=== PATIENT | male | born 1960 | race Caucasian/White ===

== ENCOUNTER → 2017-06-09 | Outpatient (CLI) | payer OTHER ==
[~2017-06-09] MED LIST: ACETAMINOPHEN325 M1 PO; ASPIRIN325 PO; IBUPROFEN 200200 M1 PO; MULTIPLE VITAM1 EAC2 PO; NORCO 5-325 TA1 EACH PO; PERCOCET PO
== END ==
LOC: M.RAD 11:46
DX: J15.8 Pneumonia due to other specified bacteria (principal)

== ENCOUNTER → 2017-07-04 | Outpatient (CLI) | payer OTHER | LOC: M.RAD 15:16 | DX: M23.92 Unspecified internal derangement of left knee (principal) ==

== ENCOUNTER → 2017-07-08 | Outpatient (CLI) | payer OTHER | LOC: M.MRI 12:11 | DX: S83.242A Other tear of medial meniscus, current injury, left knee, initial encounter (principal); S83.282A Other tear of lateral meniscus, current injury, left knee, initial encounter; X58.XXXA Exposure to other specified factors, initial encounter; Y93.89 Activity, other specified; Y92.89 Other specified places as the place of occurrence of the external cause; Y99.8 Other external cause status ==

== ENCOUNTER → 2017-07-22 | Day surgery (SDC) | payer OTHER ==
--- NOTE | 2017-08-19 15:01 | OP ---
[address] [address] OPERATIVE REPORT Name: IVAN SOTOMAYOR Room: [facility].#: [id number] Admission: 07/22/17 Attend Phys: Malcolm Flores Discharge: Date of : 56 Report #: [id number] THIS REPORT FOR: //name// CC: Rigo Salas DICTATED BY: Socrates Dowling DO DATE OF SERVICE: 07/22/2017 PREOPERATIVE DIAGNOSIS: Left knee medial meniscus tear. POSTOPERATIVE DIAGNOSES: 1. Left knee complex medial meniscus tear. 2. 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 PROCEDURES: 1. Left knee arthroscopy with partial medial meniscectomy. 2. Left knee arthroscopy with limited synovectomy. SURGEON: Trever Salas DO ASSISTANTS: 1. Socrates Dowling DO 2. Babar Garcia DO SPECIMEN: None. ESTIMATED BLOOD LOSS: Minimal. COMPLICATIONS: None. TOURNIQUET TIME: 37 minutes at 300 mmHg. CONDITION: Stable to PACU. DISPOSITION: To be discharged to home from PACU following the PACU protocol. GROSS PATHOLOGY: Grade 2 chondromalacia of the central apex as well as lateral facet of the patella as well as grade 2 chondromalacia of medial femoral condyle and medial tibial plateau. Then, complex radial tear with inferior flap component, tear of the medial meniscus. Lateral meniscus and lateral compartment relatively pathology free. INDICATIONS FOR PROCEDURE: The patient is a pleasant 57-year-old male who unfortunately has been seen in our office regarding left knee pain. He has [facility] [address] [place] [address] OPERATIVE REPORT Name: IVAN SOTOMAYOR Room: [facility].#: [id number] Admission: 07/22/17 Attend Phys: Malcolm Flores Discharge: Date of : 56 Report #: [id number] unfortunately had left knee pain for a number of months that has been treated with conservative measures of rest, ice, compression, nonsteroidal anti-inflammatories as well as pain analgesics. However, the patient continued to have ongoing left knee pain, popping and catching. He was subsequently diagnosed with a left knee medial meniscus tear on physical exam as well as MRI. Therefore, it was discussed with the patient to undergo operative intervention consisting of left knee arthroscopy with potential partial medial meniscectomy. Therefore, all the risks, benefits, treatment options, alternatives, complications and indications were discussed with the patient. Risks including but not limited to, neurovascular injury, continued pain, continued bleeding, damage to surrounding cartilage, ligaments and neurovascular structures, wound complications, infection, DVT, PE, as well as inherent complication of anesthesia. The patient was in full understanding and assumed the risks and wished to proceed with surgery. DESCRIPTION OF PROCEDURE: The patient was seen in the preoperative bay where the consent was obtained and signed, and the operative site was marked and initialed. The patient was then transported to the operative suite and placed supine on the operating room table. He was given the benefit of general anesthetic and then a well-padded tourniquet was applied to the left thigh. The left knee was then sterilely prepped with chlorhexidine scrub, alcohol rinse x 2 and then ChloraPrep x 2. The left knee was then sterilely draped in a normal sterile fashion. Timeout was then had indicating appropriate patient, operative site, procedure to be performed, preoperative antibiotics as well as the operating room surgeon. All in attendance were in agreement. Marking pen was then used to identify the inferior pole of the patella as well as the vertical lateral incision just superior and lateral to the patella as well as the horizontal medial incision just inferior and medial to the apex of the patella. Esmarch was then used to exsanguinate the limb and tourniquet was then inflated to 300 mmHg. An 11 blade scalpel was then used to incise the anterolateral portal through skin and subcutaneous tissue as well as capsule. Camera was then inserted and then diagnostic arthroscopy was performed with the above mentioned pathology. Attention was then directed to the medial compartment where limited synovectomy was required to be performed of the patellofemoral compartment as well as Hoffa's fat pad for adequate visualization. A medial portal was established utilizing an 18-gauge spinal needle that was deemed to be parallel to the patella and tension free and then a spinal needle was then removed and an 11 blade scalpel was then used to incise the skin, subcutaneous tissue and then visualized to incise the medial capsule in a horizontal fashion. At that time, medial meniscectomy was performed using arthroscopic straight and curved biters as well as shaver of the posterior horn of the medial meniscus to the posterior body of the medial meniscus where the radial tear originates in a well-tapered fashion. Then, all free debris was removed using the arthroscopic shaver. The medial meniscectomy was tapered to where the radial tear was and then, the camera was then inserted into the medial portal where the medial body of the meniscus was visualized and then the remaining [place] [address] OPERATIVE REPORT Name: IVAN SOTOMAYOR Room: [facility]#: [id number] Admission: 07/22/17 Attend Phys: Malcolm Flores Discharge: Date of : 56 Report #: [id number] to the posterior body part of the meniscus was excised utilizing straight and curved arthroscopic biters and alternating arthroscopic shaver to remove all debris and this was deemed to be brought back to a stable margin with no free flaps associated. Meniscus was then continued to be rounded and debrided utilizing the arthroscopic shaver. Shaver was then removed and then a probe was inserted and all aspects of the medial meniscus was probed and deemed to be in appropriate stable condition. Final pictures were then taken. All instruments and camera was then removed and the knee was exsanguinated and then, 2 portals were closed utilizing 3-0 nylon in a simple interrupted fashion and then wounds were dressed utilizing Xeroform, 4 x 4s, soft roll and Ross wrap. Tourniquet was then let down at 37 minutes. The patient was then transported to PACU in a stable condition. <ELECTRONICALLY SIGNED> By: Trever Salas DO 08/19/17 1501 1634 1814Micjunie Salas DO /jeremy
== END | disposition home or self-care (01) ==
LOC: M.SUR 11:27
DX: M23.222 Derangement of posterior horn of medial meniscus due to old tear or injury, left knee (principal); M94.262 Chondromalacia, left knee; Z79.82 Long term (current) use of aspirin; Z79.891 Long term (current) use of opiate analgesic

== ENCOUNTER → 2018-07-21 | Outpatient (CLI) | payer BC | LOC: M.MRI 07:10 | DX: M51.37 Other intervertebral disc degeneration, lumbosacral region (principal); M48.07 Spinal stenosis, lumbosacral region; I10 Essential (primary) hypertension; E78.00 Pure hypercholesterolemia, unspecified; F32.89 Other specified depressive episodes; Z79.899 Other long term (current) drug therapy; Z68.30 Body mass index [BMI] 30.0-30.9, adult; Z87.891 Personal history of nicotine dependence; Z80.6 Family history of leukemia; Z82.49 Family history of ischemic heart disease and other diseases of the circulatory system; Z80.8 Family history of malignant neoplasm of other organs or systems; Z83.438 Family history of other disorder of lipoprotein metabolism and other lipidemia ==

== ENCOUNTER 2018-07-31 09:57 | Inpatient (IN) | payer BC ==
[~2018-07-31] VITALS: Ht 172.7 cm; Wt 91.2 kg
--- NOTE | ~2018-07-31 | PROC ---
[facility] [address] [place] [address] PROCEDURE REPORT Name: IVAN SOTOMAYOR Room: [address] IN M.R.#: [id number] Admission: 07/31/18 Attend Phys: Malcolm Atkins Discharge: Date of : 56 Report #: [id number] THIS REPORT FOR: //name// For GI report, please see the Provation report in Perceptive 7 content. By: 0834Medical Records Staff JABARI /KIKE
[2018-07-31 10:01] VITALS: BP 143/81
[2018-07-31] MEDS ORDERED: LISINOPRIL10 MG PO (10:06)
[2018-07-31 10:15] LABS: ABSOLUTE LYMPHOCYTES 3.1 thou/uL (0.8-5.3); ABSOLUTE MONOCYTES 0.9 thou/uL (0.0-1.2); ABSOLUTE NEUTROPHILS 10.2 thou/uL (1.6-8.1); BASOPHILS 0.1 %; EOSINOPHILS 0.1 %; HEMATOCRIT 24.8 % (42.0-52.0); HEMOGLOBIN 8.6 gm/dL (14.0-18.0); LYMPHOCYTES 21.9 %; MCH 32.2 pg (26.0-34.0); MCHC 34.9 g/dL (28.0-37.0); MCV 92.3 fL (80.0-100.0); MONOCYTES 6.3 %; MPV 7.6 fl. (7.2-11.1); NUCLEATED RBCS 0 /100WBC; PLATELET COUNT* 376 thou/uL (150-400); POLYS 71.6 %; RBC 2.69 mil/uL (4.50-6.00); RDW-CV 12.8 % (10.5-14.5); WBC 14.3 thou/uL (4.0-11.0)
[2018-07-31 10:25] LABS: APTT 22.3 Seconds (25.0-31.3); INR 0.9; PROTIME 9.6 Seconds (9.20-11.50)
[2018-07-31 10:36] LABS: ALBUMIN 3.6 g/dL (3.4-5.0); ALKALINE PHOSPHATASE 47 U/L (46-116); ANION GAP 7 mmol/L (7-16); BUN 24 mg/dL (7-18); CALCIUM 8.9 mg/dL (8.5-10.1); CHLORIDE 99 mmol/L (98-107); CO2 25 mmol/L (21-32); GLUCOSE 110 mg/dL (70-99); NT-PRO BRAIN NAT PEPTIDE 358 pg/mL (<300); POTASSIUM 4.3 mmol/L (3.5-5.1); SGOT 29 U/L (15-37); SGPT 52 U/L (30-65); SODIUM 131 mmol/L (136-145); TOTAL BILIRUBIN 0.2 mg/dL (<0.1-1.0); TOTAL PROTEIN 6.5 g/dL (6.4-8.2); TROPONIN-I LEVEL <0.06 ng/mL (<0.06)
[2018-07-31 14:58] VITALS: BP 131/74
--- NOTE | 2018-07-31 16:02 | EKG ---
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
[2018-07-31 17:23] VITALS: BP 117/71
[2018-07-31 18:23] VITALS: BP 117/71
[2018-07-31 18:45] VITALS: BP 124/70
[2018-07-31] MEDS ORDERED: CHILDREN'S ASPI81 MG PO (19:01)
[2018-07-31] MEDS ORDERED: VITAMIN D1000 UNI2 PO (19:04)
[2018-07-31] MEDS ORDERED: VITAMIN C500 M2 PO (19:04)
[2018-07-31] MEDS ORDERED: NICOTINE LOZENGE2 MG PO (19:25)
[2018-07-31 19:50] VITALS: BP 110/63
[2018-08-01] VITALS: BP 101/56
[2018-08-01 04:00] VITALS: BP 107/68
[2018-08-01 05:49] LABS: HEMATOCRIT 23.7 % (42.0-52.0); HEMOGLOBIN 8.2 gm/dL (14.0-18.0); MCH 32.3 pg (26.0-34.0); MCHC 34.7 g/dL (28.0-37.0); MCV 93.2 fL (80.0-100.0); MPV 8.2 fl. (7.2-11.1); NUCLEATED RBCS 0 /100WBC; RBC 2.54 mil/uL (4.50-6.00); RDW-CV 12.9 % (10.5-14.5); WBC 7.9 thou/uL (4.0-11.0)
[2018-08-01 06:02] LABS: PLATELET COUNT* 299 thou/uL (150-400)
[2018-08-01 06:04] LABS: ALBUMIN 3.1 g/dL (3.4-5.0); CALCIUM 8.6 mg/dL (8.5-10.1); CREATININE 1.1 mg/dL (0.6-1.3); TOTAL BILIRUBIN 0.2 mg/dL (<0.1-1.0); TOTAL PROTEIN 5.8 g/dL (6.4-8.2)
[2018-08-01 06:26] LABS: POTASSIUM 5.3 mmol/L (3.5-5.1)
[2018-08-01 06:48] LABS: ABSOLUTE LYMPHOCYTES 2.5 thou/uL (0.8-5.3); ABSOLUTE MONOCYTES 0.1 thou/uL (0.0-1.2); ABSOLUTE NEUTROPHILS 5.3 thou/uL (1.6-8.1); ATYPICAL LYMPHS 8 %; METAMYELOCYTES 2 %; MYELOCYTES 1 %; PLATELET ESTIMATE ADEQUATE
[2018-08-01 08:00] VITALS: BP 117/68
[2018-08-01 08:22] LABS: ESR (SEDRATE) 15 mm/hr (0-20)
[2018-08-01 10:15] VITALS: BP 117/68
[2018-08-01 15:15] VITALS: BP 128/70
[2018-08-01 19:08] LABS: HEMATOCRIT 23.7 % (42.0-52.0); HEMOGLOBIN 8.4 gm/dL (14.0-18.0)
[2018-08-01 20:13] VITALS: BP 93/54
[2018-08-02] VITALS: BP 98/58
[2018-08-02 04:00] VITALS: BP 106/62
[2018-08-02 05:08] LABS: ABSOLUTE EOSINOPHILS 0.1 thou/uL (0.0-0.7); ABSOLUTE LYMPHOCYTES 2.8 thou/uL (0.8-5.3); ABSOLUTE MONOCYTES 0.6 thou/uL (0.0-1.2); ABSOLUTE NEUTROPHILS 3.6 thou/uL (1.6-8.1); BASOPHILS 0.5 %; EOSINOPHILS 1.3 %; HEMATOCRIT 24.6 % (42.0-52.0); HEMOGLOBIN 8.5 gm/dL (14.0-18.0); LYMPHOCYTES 39.5 %; MCH 32.5 pg (26.0-34.0); MCHC 34.7 g/dL (28.0-37.0); MCV 93.7 fL (80.0-100.0); MPV 8.2 fl. (7.2-11.1); NUCLEATED RBCS 0 /100WBC; PLATELET COUNT* 346 thou/uL (150-400); POLYS 49.7 %; RBC 2.63 mil/uL (4.50-6.00); RDW-CV 13.2 % (10.5-14.5); WBC 7.2 thou/uL (4.0-11.0)
[2018-08-02 05:12] LABS: CALCIUM 8.6 mg/dL (8.5-10.1); CREATININE 0.9 mg/dL (0.6-1.3); POTASSIUM 4.5 mmol/L (3.5-5.1)
[2018-08-02 08:00] VITALS: BP 116/75
[2018-08-02 12:18] VITALS: BP 110/67
[2018-08-02 16:53] VITALS: BP 111/64
[2018-08-02 20:57] VITALS: BP 103/67
[2018-08-03] VITALS: BP 105/63
[2018-08-03 04:00] VITALS: BP 99/63
[2018-08-03 04:42] LABS: HEMATOCRIT 24.3 % (42.0-52.0); HEMOGLOBIN 8.4 gm/dL (14.0-18.0); MCH 32.2 pg (26.0-34.0); MCHC 34.6 g/dL (28.0-37.0); MCV 93.3 fL (80.0-100.0); RBC 2.61 mil/uL (4.50-6.00); RDW-CV 13.4 % (10.5-14.5); WBC 7.6 thou/uL (4.0-11.0)
[2018-08-03 08:15] VITALS: BP 116/76
[2018-08-03] MEDS ORDERED: PROTONIX40 M1 PO (12:47)
[2018-08-03 13:04] VITALS: BP 116/76
--- NOTE | 2018-08-05 09:57 | CON ---
[address] [address] CONSULTATION Name: IVAN SOTOMAYOR Room: [address] IN M.R.#: [id number] Admission: 07/31/18 Attend Phys: Malcolm Atkins Discharge: 08/03/18 Date of : 56 Report #: [id number] THIS REPORT FOR: //name// CC: Rigo Gallego DO DATE OF SERVICE: 08/01/2018 REFERRING PHYSICIAN: Matthew Gallego DO REASON FOR CONSULTATION: 1. Acute onset of melena over the last couple of weeks with associated anemia - evaluate for upper GI source for the same. 2. History of chronic back pain for which the patient takes ibuprofen on a daily basis. RECOMMENDATIONS: 1. At the present time, the patient appears to be hemodynamically stable to undergo endoscopic evaluation. We will proceed with upper endoscopy today and make further recommendations thereafter. 2. I have discussed the plans with patient as well as and they are agreeable to the same. HISTORY: The patient is a pleasant 58-year-old white male with a 2-day history who presented to the hospital with complaints of severe shortness of breath and by his dizziness, he was found to have hemoglobin 8 gram range. He has had some problem with dark tarry stools over the last couple of weeks without any complaints of any dyspepsia. He denies heartburn, indigestion, any problem with dysphagia or odynophagia. Denies nausea, vomiting or hematemesis. He has undergone endoscopic studies of his lower GI tract in the past, last of which was performed in 2016, at which time, he had some hyperplastic polyps being notable. He denies any lower abdominal cramping or any other issues. His weight has been stable. He does take ibuprofen on a regular basis for chronic back pain, but also in addition takes hydrocodone with acetaminophen. He has never had any problems related to his upper GI tract in the past, never had any previous studies of the same. He is admitted to hospital for further evaluation and treatment. ALLERGIES: None. MEDICATIONS: Lisinopril, hydrocodone with APAP 5/325 up to 4 times a day, ibuprofen 200 mg up to every 6 hours, multivitamin. He takes [place] [address] CONSULTATION Name: SOTOMAYORIVAN Dominic Room: [address]#: [id number] Admission: 07/31/18 Attend Phys: Malcolm Atkins Discharge: 08/03/18 Date of : 56 Report #: [id number] PAST MEDICAL HISTORY: Remarkable for hypertension, chronic low back pain. He has had history of polyps, but they were hypoplastic in nature. SOCIAL HISTORY: The patient is for second time. He does not smoke, drinks alcohol on a regular basis anywhere from 4 to 6 beers a day. FAMILY HISTORY: Negative. PHYSICAL EXAMINATION: GENERAL: A pleasant 58-year-old gentleman who is awake, alert. VITAL SIGNS: His vital signs are stable. CARDIOPULMONARY: Revealed a regular rate and rhythm. LUNGS: Clear. ABDOMEN: Soft and nontender. No rebound or guarding noted. LABORATORY TEST: From admission revealed a white count of 14.3, hemoglobin 8.6, platelet count 376,000, MCV is 92.3 and RDW is 12.8. His differential is normal. His INR is 0.9. His complete metabolic panel revealed a sodium 131, potassium 4.3, chloride 99, bicarbonate 25. His BUN is 24 and creatinine 1.0. Total bilirubin 0.2, alkaline phosphatase 47, AST 29, ALT 52. His troponins have all been negative. His ferritin is 247. Folate is 22.2 and B12 level is 729. DISCUSSION: At the present time, the patient appears to be hemodynamically stable to undergo endoscopic evaluation. We will proceed with upper endoscopy today and make further recommendations thereafter. <ELECTRONICALLY SIGNED> By: Jaron Mcintyre DO 08/05/18 0957 1714 0311Jaron Mcintyre DO /nt
--- NOTE | 2018-08-07 09:06 | PATH ---
[facility] [address] [place] [address] PATHOLOGY RPT PROCEDURE Name: IVAN SOTOMAYOR Room: [address] IN M.R.#: [id number] Admission: 07/31/18 Date of : 56 Discharge: 08/03/18 Report #: [id number] Path Case #: [id number] [facility] Accession Number: [id number] . 01 Material submitted: . ANTRAL BIOPSY FOR H. PYLORI . 01 Clinical history: . Antral biopsy for H. pylori . 02 Diagnosis: Antral biopsy for H. pylori: - Mild nonspecific chronic antral gastritis, negative for Helicobacter pylori organisms and dysplasia. (CHUYITA:jeffery; 08/03/2018) . Special stain: H. pylori immuno. QMS/08/03/2018 . 02 Electronically signed: . Gold Moser MD, Pathologist NPI- [id number] . 01 Gross description: . Received in formalin labeled "Ivan Sotomayor, antral biopsy for H. pylori," are two segments of pale laurent soft tissue measuring 0.3 x 0.2 x 0.2 cm each in greatest dimensions. The specimen is submitted entirely in cassette A1. (DAC; 08/02/2018) XDC/XDC . 02 Pathologist provided ICD-10: K29.50 . 02 CPT . 543594, R75845 Specimen Comment: A courtesy copy of this report has been sent to Specimen Comment: [phone], , . Specimen Comment: Report sent to ,DR ALEXANDER / DR GARAY Specimen Comment: A duplicate report has been generated due to demographic updates. Performed at: [address], [place] [id number] MD Lalito Vizcarra MD Phone: [phone] Performed at: [address] , [place], [place] [id number] [place] [address] PATHOLOGY RPT PROCEDURE Name: IVAN SOTOMAYOR Room: [address] IN M.R.#: [id number] Admission: 07/31/18 Date of : 56 Discharge: 08/03/18 Report #: [id number] Path Case #: [id number] MD Gold Moser MD Phone: [phone]
== END 2018-08-03 13:53 | disposition home or self-care (01) | DRG 378 ==
LOC: M.ERS 09:57 → M.TBA-ER 10:58 → M.2W 10:58
PROVIDERS: Emergency Medicine Emergency Medical Services; Internal Medicine Gastroenterology; Nurse Practitioner Adult Health; ADMIT Internal Medicine
DX: K25.4 Chronic or unspecified gastric ulcer with hemorrhage (principal); D62 Acute posthemorrhagic anemia; G89.29 Other chronic pain; M54.9 Dorsalgia, unspecified; I10 Essential (primary) hypertension; K44.9 Diaphragmatic hernia without obstruction or gangrene; Z79.899 Other long term (current) drug therapy

== ENCOUNTER → 2018-08-25 | Outpatient (CLI) | payer BC ==
[~2018-08-25] MED LIST changes: +CHILDREN'S ASPI81 MG PO; +LISINOPRIL10 MG PO; +NICOTINE LOZENGE2 MG PO; +PROTONIX40 M1 PO; +VITAMIN C500 M2 PO; +VITAMIN D1000 UNI2 PO
== END ==
LOC: M.ULTRA 09:00
DX: N32.89 Other specified disorders of bladder (principal); Z87.891 Personal history of nicotine dependence; Z82.49 Family history of ischemic heart disease and other diseases of the circulatory system; Z80.8 Family history of malignant neoplasm of other organs or systems; Z83.438 Family history of other disorder of lipoprotein metabolism and other lipidemia

== ENCOUNTER 2020-05-23 19:18 | Inpatient (IN) | payer OTHER ==
[~2020-05-23] VITALS: Ht 172.7 cm; Wt 91.2 kg
[2020-05-23 19:20] VITALS: BP 101/73
[2020-05-23 19:49] LABS: ABSOLUTE BASOPHILS 0.1 thou/uL (0.0-0.2); ABSOLUTE EOSINOPHILS 0.1 thou/uL (0.0-0.7); ABSOLUTE LYMPHOCYTES 3.1 thou/uL (0.8-5.3); ABSOLUTE MONOCYTES 0.8 thou/uL (0.0-1.2); ABSOLUTE NEUTROPHILS 6.5 thou/uL (1.6-8.1); BASOPHILS 0.7 %; EOSINOPHILS 0.7 %; HEMATOCRIT 42.1 % (42.0-52.0); HEMOGLOBIN 14.6 gm/dL (14.0-18.0); LYMPHOCYTES 29.4 %; MCH 31.9 pg (26.0-34.0); MCHC 34.7 g/dL (28.0-37.0); MCV 91.8 fL (80.0-100.0); MONOCYTES 7.6 %; MPV 7.8 fl. (7.2-11.1); NUCLEATED RBCS 0 /100WBC; PLATELET COUNT* 326 thou/uL (150-400); POLYS 61.6 %; RBC 4.58 mil/uL (4.50-6.00); RDW-CV 12.5 % (10.5-14.5); WBC 10.6 thou/uL (4.0-11.0)
[2020-05-23 19:57] LABS: CALCIUM 7.9 mg/dL (8.5-10.1); CREATININE 0.8 mg/dL (0.6-1.3); POTASSIUM 3.5 mmol/L (3.5-5.1)
[2020-05-23 19:59] LABS: INR 0.9
[2020-05-23 20:07] LABS: ALBUMIN 3.8 g/dL (3.4-5.0); TOTAL BILIRUBIN 0.3 mg/dL (<0.1-1.0); TOTAL PROTEIN 7.2 g/dL (6.4-8.2)
[2020-05-23 21:30] VITALS: BP 116/74
[2020-05-23 21:45] VITALS: BP 110/64
[2020-05-24 04:00] VITALS: BP 102/60
--- NOTE | 2020-05-24 09:06 | EKG ---
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: [facility] : 1960 Requested By: Ann Marie Prieto Order Number: [id number] MD: Naeem Huffman Measurements Intervals [place] Rate: 163 P: ID: QRS: 31 QRSD: 94 T: 33 QT: 293 QTc: 483 Interpretive Statements Atrial fibrillation with rapid V-rate ST depression, probably rate related Compared to ECG 07/31/2018 10:03:35 Sinus rhythm no longer present Electronically Signed On 05-24-2020 9:06:24 HOSPICE MASSAGE THERAPIST by Naeem Huffman [email or web address] <ELECTRONICALLY SIGNED> By: Naeem Huffman MD, FACC 05/24/20 0906 21 21 Naeem Huffman MD, [facility] /EPI
--- NOTE | 2020-05-24 09:47 | CON ---
[address] [address] CONSULTATION Name: IVAN SOTOMAYOR Room: [address] M.R.#: [id number] Admission: 05/23/20 Attend Phys: Mina Maher MD Discharge: Date of : 56 Report #: [id number] THIS REPORT FOR: cc: Rigo Franks MD, Dean L. MD ~ Naeem Huffman MD [facility] DATE OF SERVICE: 05/24/2020 CARDIOLOGY CONSULTATION HISTORY OF PRESENT ILLNESS: The patient is a 59-year-old white male who I was asked to see in the hospital today after he was noted to be in atrial fibrillation. The patient has had several hospitalizations here at [place] in the past. He was actually admitted here in 07/2018 with black stools. He underwent an upper GI, and was found to have evidence of peptic ulcer disease that was cauterized. He apparently had a colonoscopy that showed no obvious bleeding. He has had no bleeding since that time. The patient notes for the past 6 month, every few weeks, he feels his heart beating fast and irregular. He developed a discomfort in his upper chest. There is no radiation of the pain. Denies exertional chest tightness. He does get short of breath and exerts himself. He has had no syncope. Yesterday, he felt his heart beating fast, he came to the Emergency Room. He was noted to be in atrial fibrillation. He was started on intravenous diltiazem and converted to sinus rhythm. I was asked to see him for further evaluation and treatment. He denies a history of a heart murmur. He does note about 5 years ago, he saw a alumni relations coordinator at [facility] in [place] because a family history of coronary artery disease. He apparently had a heart catheterization from the radial artery. No significant coronary artery disease was found. PAST MEDICAL HISTORY: He has had hernia repair, hip surgery. He has a history of hypertension. No history of diabetes, hyperlipidemia. CURRENT MEDICATIONS: Consist of hydrocodone, lisinopril, nicotine lozenges. He no longer takes Protonix. ALLERGIES: He has no known drug allergies. FAMILY HISTORY: His brother had a stent. SOCIAL HISTORY: He is . He and his live in [place], [place]. Quit smoking 5 years ago. Works at [employer]. He drinks at least 4 beers a day. He can drink up to 12-pack. He had a DWI in the past. No history of seizures, blackout spells, hepatitis. He does smoke grass occasionally, but [place] [address] CONSULTATION Name: IVAN SOTOMAYOR Room: [address] M.R.#: [id number] Admission: 05/23/20 Attend Phys: Mina Maher MD Discharge: Date of : 56 Report #: [id number] REVIEW OF SYSTEMS: He has no history of stroke, asthma, kidney disease, cancer, psychiatric illness, chronic skin condition. PHYSICAL EXAMINATION: GENERAL: Reveals a middle-aged male, appeared in no distress. VITAL SIGNS: His blood pressure 100/60, pulse is 70, he is afebrile. HEENT: He was anicteric. Conjunctivae pink. Mucous membranes moist. NECK: Veins nondistended. No carotid bruits. CHEST: Clear to auscultation. CARDIOVASCULAR: Regular rate and rhythm. No murmurs. ABDOMEN: Soft. EXTREMITIES: Had no edema. Posterior tibial pulse 2+ bilaterally. SKIN: Cool and dry. NEUROLOGIC: Nonfocal. PSYCHIATRIC: Mood is appropriate. DIAGNOSTIC STUDIES: His ECG on admission showed atrial fibrillation, rapid ventricular response rate, nonspecific ST-segment changes. His workup last night in the Emergency Room, he had a portable chest x-ray that showed normal heart size and clear lung montgomery. LABORATORY WORK: Last night, sodium 130, creatinine 0.8, SGOT 43. Troponins were all 0.06. BNP 180. His white blood cell count 10.6, hemoglobin 14.6. COVID antigen stat test was negative. IMPRESSION AND RECOMMENDATIONS: 1. Paroxysmal atrial fibrillation. Suspect secondary to excessive alcohol intake. Recommend alcohol in moderation only. Since he has recurrent episodes, I would recommend starting sotalol at this time. I would not recommend anticoagulation because of history of gastrointestinal bleeding. 2. Hypertension. Recommend switching from lisinopril to sotalol. 3. Excessive alcohol intake. 4. Previous tobacco abuse. Fortunately, the patient no longer smokes. 5. Previous history of peptic ulcer disease. No further gastrointestinal bleeding. <ELECTRONICALLY SIGNED> By: Naeem Huffman MD, [facility] 05/24/20 0947 0811 0832Davidonavon Huffman MD, FAC /nt
[2020-05-24 10:00] LABS: CALCIUM 7.9 mg/dL (8.5-10.1); CREATININE 0.8 mg/dL (0.6-1.3); POTASSIUM 4.2 mmol/L (3.5-5.1)
[2020-05-24 10:03] LABS: PHOSPHORUS* 3.5 mg/dL (2.5-4.9)
[2020-05-24 12:00] VITALS: BP 138/80
[2020-05-24 17:25] VITALS: BP 114/64
[2020-05-24 20:00] VITALS: BP 130/86
[2020-05-25 04:00] VITALS: BP 129/75
[2020-05-25 05:33] LABS: CREATININE 0.7 mg/dL (0.6-1.3); MAGNESIUM 2.2 mg/dL (1.8-2.4); POTASSIUM 3.6 mmol/L (3.5-5.1)
[2020-05-25] MEDS ORDERED: SORINE 80 MG TA80 M1 PO (09:36)
[2020-05-25 12:00] VITALS: BP 153/92
[2020-05-25 17:00] VITALS: BP 152/83
[2020-05-25 20:00] VITALS: BP 140/80
[2020-05-26 05:19] VITALS: BP 150/78
[2020-05-26 07:38] VITALS: BP 143/80
--- NOTE | 2020-05-26 10:22 | EKG ---
[place] [address] ELECTROCARDIOGRAM REPORT Name: IVAN SOTOMAYOR Room: [address] ADM IN M.R.#: [id number] Admission: 05/24/20 Attend Phys: Mina Maher, Discharge: Date of : 56 Date of Service: 05/25/20 0942 Report #: [id number] THIS REPORT FOR: //name// [facility] Test Date: 2020-05-25 Test Time: 09:42:36 Pat Name: IVAN SOTOMAYOR Department: Room: [address] Gender: M Auto Claim Representative: ATHOMPSONCorinne : 1960 Requested By: Naeem Huffman Order Number: [id number] Lina MD: Naeem Huffman Measurements Intervals [place] Rate: 62 P: 6 [place]: 159 QRS: 16 QRSD: 86 T: 30 QT: 422 QTc: 429 Interpretive Statements Sinus rhythm Abnormal R-wave progression, early transition Compared to ECG 05/23/2020 19:22:44 Atrial fibrillation no longer present ST (T wave) deviation no longer present Electronically Signed On 05-26-2020 10:22:39 NAVY FIGHTER PILOT by Naeem Huffman [email or web address] <ELECTRONICALLY SIGNED> By: Naeem Huffman MD, FACC 05/26/20 1022 0942 0942 Naeem Huffman MD, [facility] /EPI
--- NOTE | 2020-05-26 10:31 | EKG ---
[place] [address] ELECTROCARDIOGRAM REPORT Name: IVAN SOTOMAYOR Room: [address] ADM IN .R.#: [id number] Admission: 05/24/20 Attend Phys: Mina Maher, Discharge: Date of : 56 Date of Service: 05/26/2015 Report #: [id number] THIS REPORT FOR: //name// [facility] Test Date: 2020-05-26 Test Time: 09:15:21 Pat Name: IVAN SOTOMAYOR Department: Room: [address] Gender: M Cushion Former: : 1960 Requested By: Naeem Huffman Order Number: [id number] Lina MD: Naeem Huffman Measurements Intervals [place] Rate: 53 P: 11 [place]: 170 QRS: 30 QRSD: 87 T: 46 QT: 432 QTc: 406 Interpretive Statements Sinus bradycardia Compared to ECG 05/25/2020 09:42:36 rate has slowed Electronically Signed On 05-26-2020 10:31:47 BROACH TROUBLE SHOOTER by Naeem Huffman [email or web address] <ELECTRONICALLY SIGNED> By: Naeem Huffman MD, [facility] 05/26/20 1031 4 4 Naeem Huffman MD, [facility] /EPI
[2020-05-26 10:37] VITALS: BP 143/80
[2020-05-26] MEDS ORDERED: SORINE 80 MG TA80 M1 PO ×2 (10:51→10:52)
[2020-05-26 11:28] VITALS: BP 143/80
--- NOTE | 2020-05-26 13:18 | 2DMMODE ---
[place] [address] 2 D/M-MODE ECHOCARDIOGRAM Name: SOTOMAYORIVAN BRYANT Room: [address] [facility].#: [id number] Admission: 05/24/20 Attend Phys: Mina Maher, Discharge: 05/26/20 Date of : 56 Date of Service: 05/26/20 1317 Report #: [id number] THIS REPORT FOR: cc: Rigo Franks MD, Dean L. MD Blick, David R. MD [facility] ~ APPROVED REPORT Study performed: 05/26/2020 09:39:00 EXAM: Comprehensive 2D, Doppler, and color-flow Echocardiogram Patient Location: In-Patient Room #: 230 Status: routine BSA: 2.05 HR: 60 bpm BP: 143/80 mmHg Rhythm: NSR Other Information Study Quality: Good Indications Atrial Fibrillation 2D Dimensions IVSd: 11.56 (7-11mm) LVOT Diam: 21.75 (18-24mm) LVDd: 40.79 mm PWd: 10.06 (7-11mm) Ascending Ao: 34.25 (22-36mm) LVDs: 24.93 (25-40mm) Aortic Root: 38.14 mm Volumes Left Atrial Volume (Systole) LA ESV Index: 40.60 mL/m2 Aortic Valve AoV Peak Oumar.: 1.23 m/s AO Peak Gr.: 6.04 mmHg LVOT Max P.22 mmHg AO Mean Gr.: 2.90 mmHg LVOT Mean P.69 mmHg LVOT Max V: 1.03 m/s AO V2 VTI: 28.25 cm LVOT Mean V: 0.58 m/s SAMARIA (VTI): 3.24 cm2 LVOT V1 VTI: 24.59 [place] [address] 2 D/M-MODE ECHOCARDIOGRAM Name: IVAN SOTOMAYOR Room: [address] IN ..#: [id number] Admission: 05/24/20 Attend Phys: Mina Maher, Discharge: 05/26/20 Date of : 56 Date of Service: 05/26/20 1317 Report #: [id number] Mitral Valve E/A Ratio: 1.40 MV Decel. Time: 215.48 ms MV E Max Oumar.: 0.72 m/s MV PHT: 62.49 ms MVA (PHT): 3.52 cm2 TDI E/Lateral E': 4.80 E/Medial E': 7.20 Medial E' Oumar.: 0.10 m/s Lateral E' Oumar.: 0.15 m/s Pulmonary Valve PV Peak Oumar.: 0.76 m/s PV Peak Gr.: 2.33 mmHg Tricuspid Valve RAP Estimate: 5.00 mmHg TR Peak Gr.: 28.53 mmHg RVSP: 33.00 mmHg PA Pressure: 33.00 mmHg Left Ventricle The left ventricle is normal size. There is normal LV segmental wall motion. There is normal left ventricular wall thickness. Left ventricular systolic function is normal. The left ventricular ejection fraction is within the normal range. LVEF is 55-60%. The left ventricular diastolic function is normal. Right Ventricle Right ventricle is dilated. The right ventricular systolic function is normal. Atria Left atrium is mildly dilated. Right atrium is dilated. Aortic Valve The aortic valve is normal in structure. No aortic regurgitation is present. There is no aortic valvular stenosis. Mitral Valve The mitral valve is normal in structure. Trace mitral regurgitation. No evidence of mitral valve stenosis. Tricuspid Valve The tricuspid valve is normal in structure. Mild tricuspid regurgitation. estimated pa pressure 35 [place] [address] 2 D/M-MODE ECHOCARDIOGRAM Name: SOTOMAYORIVAN BRYANT Room: [address] IN ..#: [id number] Admission: 05/24/20 Attend Phys: Mina Maher, Discharge: 05/26/20 Date of : 56 Date of Service: 05/26/20 1317 Report #: [id number] Pulmonic Valve The pulmonary valve is normal in structure. Mild pulmonic regurgitation. Great Vessels The aortic root is normal in size. IVC is normal in size and collapses >50% with inspiration. Pericardium There is no pericardial effusion. <Conclusion> LVEF is 55-60%. Left atrium is mildly dilated. Mild tricuspid regurgitation. estimated pa pressure 35 mm Hg <ELECTRONICALLY SIGNED> By: Naeem Huffman MD, FACC 05/26/207 16 16 Naeem Huffman MD, FACC /INF
== END 2020-05-26 11:28 | disposition home or self-care (01) | DRG 309 ==
LOC: M.ERS 19:18 → M.TBA-ER 20:35 → M.2W 21:41
PROVIDERS: Emergency Medicine; ADMIT Internal Medicine; ATTEND Internal Medicine
DX: I48.20 Chronic atrial fibrillation, unspecified (principal); E87.1 Hypo-osmolality and hyponatremia; G89.29 Other chronic pain; M54.9 Dorsalgia, unspecified; I10 Essential (primary) hypertension; F10.10 Alcohol abuse, uncomplicated; Y90.9 Presence of alcohol in blood, level not specified; I48.0 Paroxysmal atrial fibrillation; E66.9 Obesity, unspecified; Z20.828 Contact with and (suspected) exposure to other viral communicable diseases; Z79.899 Other long term (current) drug therapy; Z87.891 Personal history of nicotine dependence; Z68.30 Body mass index [BMI] 30.0-30.9, adult

== ENCOUNTER 2021-05-27 09:32 | Emergency (ER) | payer OTHER ==
[~2021-05-27] VITALS: Ht 167.6 cm; Wt 90.7 kg
[~2021-05-27 09:32] MED LIST changes: +LIPITOR40 MG PO; +LISINOPRIL5 MG PO; +PROAIR HFA8.5 GM INH; +SORINE 80 MG TA80 M1 PO; +SORINE 80 MG TA80 MG PO; +XARELTO20 MG PO; +ZOLOFT25 MG PO
[2021-05-27 10:08] LABS: ABSOLUTE EOSINOPHILS 0.1 thou/uL (0.0-0.7); ABSOLUTE LYMPHOCYTES 2.4 thou/uL (0.8-5.3); ABSOLUTE MONOCYTES 0.4 thou/uL (0.0-1.2); ABSOLUTE NEUTROPHILS 2.3 thou/uL (1.6-8.1); BASOPHILS 0.7 %; EOSINOPHILS 2.3 %; HEMATOCRIT 43.6 % (42.0-52.0); HEMOGLOBIN 14.5 gm/dL (14.0-18.0); LYMPHOCYTES 45.4 %; MCH 30.2 pg (26.0-34.0); MCHC 33.3 g/dL (28.0-37.0); MCV 90.8 fL (80.0-100.0); MONOCYTES 8.3 %; MPV 8.2 fl. (7.2-11.1); NUCLEATED RBCS 0 /100WBC; PLATELET COUNT* 337 thou/uL (150-400); POLYS 43.3 %; RDW-CV 12.8 % (10.5-14.5); WBC 5.3 thou/uL (4.0-11.0)
[2021-05-27 10:26] LABS: CALCIUM 8.4 mg/dL (8.5-10.1); CREATININE 0.9 mg/dL (0.6-1.3); POTASSIUM 4.6 mmol/L (3.5-5.1)
--- NOTE | 2021-05-27 10:30 | EKG ---
[place] [address] ELECTROCARDIOGRAM REPORT Name: IVAN SOTOMAYOR Room: [facility] M.R.#: [id number] Admission: Attend Phys: Discharge: Date of : 56 Date of Service: 05/27/21955 Report #: [id number] THIS REPORT FOR: //name// [facility] ED Test Date: 2021-05-27 Test Time: 09:56:59 Pat Name: IVAN SOTOMAYOR Department: Room: Gender: M Subeditor: : [id number] Requested By: Garo Dubon Order Number: [id number] MD: Naeem Huffman Measurements Intervals [place] Rate: 78 P: 24 MI: 140 QRS: 43 QRSD: 83 T: 55 QT: 387 QTc: 441 Interpretive Statements Sinus rhythm Compared to ECG 05/26/2020 09:15:21 rate has increased Electronically Signed On 05-27-2021 10:29:49 [employer] by Naeem Huffman [email or web address] <ELECTRONICALLY SIGNED> By: Naeem Huffman MD, [facility] 05/27/21 1029 5 09 Naeem Huffman MD, FACC /EPI
[2021-05-27 10:31] LABS: ALBUMIN 3.7 g/dL (3.4-5.0); TOTAL BILIRUBIN 0.5 mg/dL (<0.1-1.0); TOTAL PROTEIN 7.3 g/dL (6.4-8.2)
[2021-05-27 11:38] VITALS: BP 140/60
== END 2021-05-27 11:38 | disposition home or self-care (01) ==
LOC: M.ERS 09:32
PROVIDERS: Family Medicine
DX: R42 Dizziness and giddiness (principal); Z20.822 Contact with and (suspected) exposure to COVID-19; R06.02 Shortness of breath; M79.604 Pain in right leg; M79.605 Pain in left leg; I10 Essential (primary) hypertension; I48.0 Paroxysmal atrial fibrillation; E66.9 Obesity, unspecified; F17.210 Nicotine dependence, cigarettes, uncomplicated; Z68.32 Body mass index [BMI] 32.0-32.9, adult; Z98.890 Other specified postprocedural states; Z79.899 Other long term (current) drug therapy